=== PATIENT | female | born 1935 | race Caucasian/White ===

== ENCOUNTER 2020-11-28 12:10 | Emergency (ER) | payer MEDICARE ==
[~2020-11-28] VITALS: Ht 165.1 cm; Wt 63.5 kg
--- NOTE | 2020-11-28 12:51 | NUR ---
PT IS IN ROOM #2A. DR ANGELES EVALUATED THE PT.
--- NOTE | 2020-11-28 14:10 | NUR ---
PT IS GOING TO BE DISCHARGED TO HER NURSING FACILITY. " [facility]" CHILD GUIDANCE COUNSELOR , JERRY CASTILLO WAS NOTIFIED.([phone])
[2020-11-28 15:39] LABS: HEMATOCRIT 40.4 % (31.2-41.9); MEAN CORPUSCULAR HEMOGLOBIN 33.1 uug (24.7-32.8); PLATELET COUNT (AUTO) 348 K/uL (179-408)
[2020-11-28 15:47] LABS: CARBON DIOXIDE 28 mmol/L (21-32); CHLORIDE 99 mmol/L (98-107); CREATININE 0.8 mg/dL (0.6-1.3); ETHANOL < 3 MG/DL (0-0); GLUCOSE 132 mg/dL (74-106); POTASSIUM 3.9 mmol/L (3.5-5.1); UREA NITROGEN, BLOOD 9 mg/dL (7-18)
[2020-11-28 15:53] LABS: ACETAMINOPHEN < 2.0 ug/mL (10-30); ALANINE AMINOTRANSFERASE 21 U/L (14-59); ALKALINE PHOSPHATASE 81 U/L (50-136); ASPARTATE AMINOTRANSFERASE 23 U/L (15-37); BILIRUBIN,DIRECT 0.1 mg/dL (0.0-0.2); BILIRUBIN,TOTAL 0.6 mg/dL (0.2-1.0); TOTAL PROTEIN, SERUM 7.8 g/dL (6.4-8.2)
[2020-11-28 16:01] LABS: THYROID STIMULATING HORMONE 1.076 mIU/mL (0.358-3.740)
--- NOTE | 2020-11-28 16:54 | NUR ---
[facility] ([phone]) WAS CALLED TO TRANSFER PT TO HER NURSING FACILITY. BLS AMBULANCE WAS REQUESTED. TC IS 2 HRS.
--- NOTE | 2020-11-28 20:00 | NUR ---
Called [facility], [facility] delays, new ETA 1.5 hours ~[phone].
--- NOTE | 2020-11-28 21:38 | NUR ---
Called [facility], more delays, new ETA [phone].
--- NOTE | 2020-11-28 23:04 | NUR ---
Called [facility], stated Ambulance is about 10 minutes away.
--- NOTE | 2020-11-28 23:10 | NUR ---
[facility] arrived to ER, report and documentation given to EMT. Pt out of ER via [facility]aitie, VSS, all belongings taken, provided copies with labs, xray, and ct results.
[2020-11-28 23:18] VITALS: BP 130/72
== END 2020-11-28 23:19 ==
LOC: ER 12:15
DX: S42.214A Unspecified nondisplaced fracture of surgical neck of right humerus, initial encounter for closed fracture (principal); W19.XXXA Unspecified fall, initial encounter; Y92.092 Bedroom in other non-institutional residence as the place of occurrence of the external cause; G31.84 Mild cognitive impairment of uncertain or unknown etiology; I67.2 Cerebral atherosclerosis; M50.31 Other cervical disc degeneration, high cervical region; M48.02 Spinal stenosis, cervical region; R94.31 Abnormal electrocardiogram [ECG] [EKG]; Z86.73 Personal history of transient ischemic attack (TIA), and cerebral infarction without residual deficits; I10 Essential (primary) hypertension
CPT/HCPCS: 36415; 70030-TC; 70450; 72125; 73030; 83605; 84443; 85025; 87040; 93005; A4663; G0480